=== PATIENT | female | born 1975 | race Caucasian/White ===

== ENCOUNTER 2020-11-26 18:54 | Emergency (ER) | payer OTHER, SELFPAY ==
[2020-11-26 20:05] VITALS: BP 141/71; PULSE 95; RESP 20; TEMP 36.6; O2SAT 95
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
[2020-11-26 21:28] LABS: Basophils Absolute Auto 0.03 K/mm3 (0.00-0.10); Basophils Percent Auto 0.3 % (0.0-1.0); Eosinophils Absolute Auto 0.04 K/mm3 (0.02-0.50); Eosinophils Percent Auto 0.4 % (1.0-6.0); Hematocrit 39.6 % (35.0-49.0); Hemoglobin 13.3 g/dL (12.0-15.0); Immature Granulocyte Absolute 0.03 K/mm3 (0.00-0.00); Immature Granulocyte Percent A 0.3 % (0.0-0.0); Lymphocytes Absolute Auto 2.96 K/mm3 (1.10-4.50); Lymphocytes Percent Auto 26.6 % (18.0-42.0); Mean Corpuscular HGB Conc 33.6 g/dL (32.0-36.0); Mean Corpuscular Hemoglobin 29.9 pg (27.0-31.0); Mean Platelet Volume 10.7 fl (9.2-11.8); Monocytes Absolute Auto 0.63 K/mm3 (0.10-0.90); Monocytes Percent Auto 5.7 % (2.0-11.0); Neutrophils Absolute Auto 7.4 K/mm3 (1.7-7.2); Neutrophils Percent Auto 66.7 % (50.0-70.0); Platelet Count Result 371 K/mm3 (150-420); Red Blood Count 4.45 M/mm3 (4.20-5.40); Red Cell Distribution Width 12.6 % (11.6-14.4); White Blood Count 11.1 K/mm3 (4.8-10.8)
[2020-11-26 21:41] LABS: Add Urine Microscopic? YES; Appearance Urine Clear (Clear); Bilirubin Urine Negative (Negative); Blood Urine 1+ (Negative); Color Urine Yellow (Yellow); Glucose Urine UA Negative (Negative); Ketones Urine 1+ (Negative); Leukocyte Esterase Ur 1+ LEU/UL (Negative); Nitrate Urine Positive (Negative); Protein Urine Trace (Negative); Specific Grav Ur >= 1.030 (1.010-1.020); Urobilinogen Urine 0.2 mg/dL (0.2-1.0)
--- NOTE | 2020-11-26 21:44 | PC.NURSE ---
2039 pt decined iv access at this time, i dont want anything put into my body until i have drug results and lab results . erp notified.
[2020-11-26 21:50] LABS: Squamous Epithelial Cell Urine Many /hpf (Few); WBC Urine 31-50 /hpf (0-3)
[2020-11-26 21:51] LABS: Amphetamine Screen Urine Positive (Negative); Bacteria Urine 4+ /hpf; Barbiturate Screen Urine Negative (Negative); Benzodiazepines Screen Urine Positive (Negative); Cannabinoid Screen Urine Positive (Negative); Cocaine Screen Urine Negative (Negative); Methadone Screen Urine Negative (Negative); Mucus Urine Moderate /lpf; Opiate Screen Urine Negative (Negative); Phencyclidine Screen Urine Negative (Negative)
[2020-11-26 21:54] LABS: Alanine Aminotransferase 17 U/L (14-59); Albumin Level 3.8 g/dL (3.4-5.0); Alkaline Phosphatase 74 U/L (46-116); Anion Gap 13 mmol/L (8-16); Aspartate Amino Transferase 17 U/L (15-37); Bilirubin,Total 0.8 mg/dL (0.00-1.00); Blood Urea Nitrogen 10 mg/dL (7-18); Calcium 8.6 mg/dL (8.5-10.1); Carbon Dioxide 19 mmol/L (21-32); Chloride 104 mmol/L (98-108); Estimated CRCL calculation 89 ml/min; Estimated Glomerular Filt Rate > 60; Glucose 96 mg/dL (70-99); Lipase 252 U/L (73-393); Osmolality Calculated 281 mOsm/kg (285-295); Potassium 4.7 mmol/L (3.5-5.1); Sodium 136 mmol/L (136-145); Total Protein 7.3 g/dL (6.4-8.2)
[2020-11-26 21:58] LABS: SARS-CoV-2 Ag Negative (Negative)
[2020-11-26 21:59] LABS: Influenza Control Valid (Valid)
[2020-11-26 22:01] LABS: Lactic Acid Reflex 0.9 mmol/L (0.4-2.0)
[2020-11-26] MEDS: CIPROFLOXACIN 500 MG TAB PO (22:18)
[2020-11-26 22:27] VITALS: BP 147/71; PULSE 87; RESP 20; TEMP 36.8; O2SAT 97
[2020-11-26 22:54] LABS: SARS-CoV-2 RNA PCR Negative (Negative)
== END 2020-11-26 22:29 | disposition home or self-care (01) ==
PROVIDERS: Emergency Provider Emergency Medicine
DX: N12 Tubulo-interstitial nephritis, not specified as acute or chronic (principal)
CPT/HCPCS: 36415; 80053; 80307; 81001; 83605; 83690; 85025; 87040; 87077; 87086; 87088; 87186; 87426; 87804; 99283; A9270; C9803; U0003; U0005

== ENCOUNTER 2021-09-22 17:12 | Emergency (ER) | payer OTHER, SELFPAY ==
[2021-09-22 17:16] VITALS: BP 135/75; PULSE 97; RESP 16; TEMP 36.6; O2SAT 100
--- NOTE | 2021-09-22 17:24 | ED.FEMALEGU ---
HPI - Female Genitourinary General Chief complaint: Urogenital-Female Stated complaint: back pain, swelling feet/legs Source: patient and RN notes reviewed Mode of arrival: ambulatory Limitations: no limitations History of Present Illness MD elicited complaint: dysuria and flank pain Pertinent past history: recurrent UTIs Onset (ago): day(s) (1) Severity: moderate Quality of pain: dull, burning and aching Consistency: constant and progressively worsening Vaginal discharge: none Vaginal bleeding: none Urinary symptoms: Dysuria and Difficulty Urinating Exacerbating factors: urination Relieving factors: none Treatment prior to arrival: none Patient : No Related Data Allergies Allergy/AdvReac Type Severity Reaction Status Date / Time erythromycin base Allergy Unknown Unknown Verified 09/22/21 17:27 Penicillins AdvReac Mild Unknown Verified 09/22/21 17:27 SALICYLATES Allergy Mild Unknown Uncoded 09/22/21 17:27 NKFA Allergy Unknown Unknown Uncoded 09/22/21 17:27 Review of Systems Review of Systems: All systems reviewed & are unremarkable except as noted in HPI and below Constitutional: Constitutional: Reports chills Cardiovascular: Cardiovascular: Reports pedal edema (for two weeks) [facility] Past Medical History Medical History Narcotic abuse Social History Social History Smoking status: Current every day smoker Alcohol intake: never Substance use: former Substance use type: former substance user, marijuana and opiates Last use: fentanyl 2 weeks ago Exam Const: General: healthy appearing, no acute distress and alert Nutritional Appearance: well nourished Orientation/consciousness: patient oriented x3 Other: Female nurse in room during examination. HENMT: Head: normal to inspection Ears: external ears normal Eyes: General: appearance normal, both eyes and all related structures Conjunctivae: conjunctivae normal Pupils: Equal, round and reactive pupils present EOM: EOMs intact bilaterally Neck: Neck: normal visual inspection Resp: Effort & Inspection: normal respiratory effort Auscultation: clear to auscultation bilaterally Cardio: Rate: regular rate Rhythm: regular rhythm GI: GI Palp: Yes Soft to palpation and No Tenderness to palpation present (GI) Auscultation: normal bowel sounds : General: Yes CVA tenderness bilateral Back/Spine/Pelvis: Cervical Spine: cervical ROM normal Thoracic/Lumbar Spine: thoraco-lumbar ROM normal Skin: General skin exam: normal color Rashes: no rashes Neuro: General: patient oriented x3, moves all extremities, no focal motor deficits and CN's II-XI intact bilaterally Speech: normal speech Gait exam (Neuro): Normal gait present Extrem: General: edema bilateral (trace around ankles) Psych: Mental Status: mental status grossly normal Affect: normal affect Attitude: cooperative Thought content: Yes Normal thought content present Course Vital Signs Vital signs: Vital Signs Temperature 36.6 C 09/22/21 17:16 Pulse Rate 97 09/22/21 17:16 Respiratory Rate 16 09/22/21 17:16 Blood Pressure 135/75 09/22/21 17:16 Pulse Oximetry 100 09/22/21 17:16 Temperature 36.6 C 09/22/21 18:30 Pulse Rate 88 09/22/21 18:30 Respiratory Rate 16 09/22/21 18:30 Blood Pressure 130/74 09/22/21 18:30 Pulse Oximetry 100 09/22/21 18:30 MDM - Female Genitourinary Lab Data Result diagrams: 09/22/21 17:50 09/22/21 17:50 Labs: Lab Results 09/22/21 09/22/21 09/22/21 Range/Units 17:50 17:50 17:50 WBC 3.6 L (4.8-10.8) K/mm3 RBC 4.57 (4.20-5.40) M/mm3 Hgb 13.3 (12.0-15.0) g/dL Hct 42.1 (35.0-49.0) % MCV 92.1 (78.0-102.0) fL MCH 29.1 (27.0-31.0) pg MCHC 31.6 L (32.0-36.0) g/dL RDW 12.6 (11.6-14.4) % Plt Count 243 (150-420) K/mm3 MPV 11.1 (9.2-11.8) fl
[2021-09-22 17:57] LABS: Add Urine Microscopic? YES; Bilirubin Urine Negative (Negative); Blood Urine 2+ (Negative); Color Urine Yellow (Yellow); Glucose Urine UA Negative (Negative); Hematocrit 42.1 % (35.0-49.0); Hemoglobin 13.3 g/dL (12.0-15.0); Ketones Urine Negative (Negative); Leukocyte Esterase Ur 1+ LEU/UL (Negative); Mean Corpuscular HGB Conc 31.6 g/dL (32.0-36.0); Mean Corpuscular Hemoglobin 29.1 pg (27.0-31.0); Mean Corpuscular Volume 92.1 fL (78.0-102.0); Mean Platelet Volume 11.1 fl (9.2-11.8); Nitrate Urine Positive (Negative); Platelet Count Result 243 K/mm3 (150-420); Protein Urine Negative (Negative); Red Blood Count 4.57 M/mm3 (4.20-5.40); Red Cell Distribution Width 12.6 % (11.6-14.4); Specific Grav Ur >= 1.030 (1.010-1.020); Urobilinogen Urine 0.2 mg/dL (0.2-1.0); White Blood Count 3.6 K/mm3 (4.8-10.8)
[2021-09-22 18:02] LABS: Appearance Urine Slightly Cloudy (Clear)
[2021-09-22 18:03] LABS: Bacteria Urine 4+ /hpf; Squamous Epithelial Cell Urine Few /hpf (Few)
[2021-09-22 18:19] LABS: Alanine Aminotransferase 42 U/L (14-59); Albumin Level 3.8 g/dL (3.4-5.0); Alkaline Phosphatase 99 U/L (46-116); Anion Gap 8 mmol/L (8-16); Aspartate Amino Transferase 22 U/L (15-37); Bilirubin,Total 0.1 mg/dL (0.00-1.00); Blood Urea Nitrogen 10 mg/dL (7-18); Calcium 8.5 mg/dL (8.5-10.1); Carbon Dioxide 27 mmol/L (21-32); Chloride 100 mmol/L (98-108); Estimated CRCL calculation 82 ml/min; Estimated Glomerular Filt Rate > 60; Glucose 84 mg/dL (70-99); NT Pro B Type Natriuretic Pept 12 pg/mL (0-125); Osmolality Calculated 278 mOsm/kg (285-295); Potassium 3.9 mmol/L (3.5-5.1); Sodium 135 mmol/L (136-145); Total Protein 7.2 g/dL (6.4-8.2)
[2021-09-22 18:20] LABS: CRP < 0.2 mg/dL (0.0-0.9)
[2021-09-22 18:21] LABS: Band Neutrophils Percent 0 % (0-6); Eosinophils Absolute Manual 0.07 K/mm3 (0.02-0.5); Eosinophils Percent Manual 2 % (1-6); Lymphocytes Absolute Manual 1.51 K/mm3 (1.1-4.5); Lymphocytes Percent Manual 42 % (18-44); Monocytes Absolute Manual 0.36 K/mm3 (0.1-0.90); Monocytes Percent Manual 10 % (3-9); Neutrophils Absolute Manual 1.65 K/mm3 (1.7-7.2); Neutrophils Percent Manual 46 % (46-73); Platelet Estimate Adequate (Adequate); Total Cells Counted 100
[2021-09-22 18:30] VITALS: BP 130/74; PULSE 88; RESP 16; TEMP 36.6; O2SAT 100
== END 2021-09-22 18:40 | disposition home or self-care (01) ==
PROVIDERS: Emergency Provider Emergency Medicine
DX: N30.01 Acute cystitis with hematuria (principal)
CPT/HCPCS: 36415; 80053; 81001; 83880; 85025; 86140; 87077; 87086; 87088; 87186; 99283; A9270

== ENCOUNTER 2023-03-20 07:55 | Emergency (ER) | payer OTHER, SELFPAY ==
--- NOTE | ~2023-03-20 | US_ITS ---
Limited Abdominal Sonogram: Real-time sonographic imaging of the right upper quadrant was performed. Clinical History: Right upper quadrant pain Findings: The liver appears normal with no evidence of mass lesion or bile duct dilatation. Main por eileen vein demonstrates normal direction of flow. The gallbladder is partially distended, and appears n ormal with no evidence of gallstone or wall thickening. The common bile duct measures 8 mm. The visu alized pancreas, aorta, and IVC are unremarkable. Impression: No significant abnormality seen. Reviewed, dictated and finalized at location [facility]. [employer] Impression: No significant abnormality seen.
--- NOTE | ~2023-03-20 | CT_ITS ---
EXAMINATION: CT abdomen pelvis wo con DATE: 03/20/2023 09:35 INDICATION: Right lower quadrant abdominal pain. Nausea and vomiting. TECHNIQUE: Computed tomography (CT) of the abdomen and pelvis was performed without intravenous contr ast. Automated exposure control and iterative reconstruction technique were employed. Exam dose: 842 .64 mGy-cm total exam DLP. COMPARISON: 03/20/2023 Limited abdominal ultrasound examination; no significant abnormality was repor kem 02/03/2019 CT abdomen pelvis FINDINGS: Minimal bilateral basilar lower lobe atelectasis. Normal heart size. No pericardial or pleural effusion. The liver, gallbladder, bile ducts, pancreas, pancreatic duct, and adrenal glands are unremarkable. There is mild right perinephric stranding and mild fullness of the right renal pelvis compared to 02/03/2019. The right ureter is difficult to track but there is an approximately 2 mm calcification in th e region of the distal right ureter near the urinary bladder which might represent a small distal rig ht ureteral calculus. Repeat CT examination with IV contrast material may be helpful for further conf irmation or exclusion of distal right ureteral calculus. No other urinary tract calculus is evident. No left hydroureteronephrosis. Bilateral tubal ligation. The uterus and adnexal areas otherwise appear unremarkable. Normal caliber of the abdominal aorta. No intraperitoneal or retroperitoneal or pelvic mass or adenop athy or ascites is noted. No evidence of appendicitis. There is a prominent amount of fecal material in the colon. No bowel obs truction, bowel wall thickening, pneumatosis or intraperitoneal free air is detected. Included skeletal structures are unremarkable. IMPRESSION: Cannot exclude approximately 2 mm distal right ureteral calculus; consider repeat CT exa mination with IV contrast material for more definitive confirmation or exclusion of such. Reviewed, dictated and finalized at [facility]. Reviewed, dictated and finalized at location [facility]. [employer] PERSON IMPRESSION: Cannot exclude approximately 2 mm distal right ureteral calculus; consider repeat CT examination with IV contrast material for more definitive co nfirmation or exclusion of such.
[2023-03-20 07:59] VITALS: BP 115/67; PULSE 92; RESP 20; TEMP 37.1; O2SAT 98
--- NOTE | 2023-03-20 08:03 | ED.ABDPAIN ---
HPI - Abdominal Pain General Chief Complaint: Abdominal Pain Stated Complaint: abdominal pain Time Seen by Provider: 03/20/23 08:01 Source: patient Mode of arrival: ambulatory Limitations: no limitations History of Present Illness HPI narrative: 47-year-old female , smoker with a history of polysubstance abuse, gallbladder disease presents to the ER with a multiple day history of -- right upper quadrant abdominal pain -- nausea with vomiting. No fever or chills. MD elicited complaint: abdominal pain Pertinent past history: other ( gallbladder disease) Onset (ago): day(s) Pain Consistency: constant Location: RUQ Severity: severe Quality: cramping Radiation: none Migration to: no migration Exacerbating factors: nothing Relieving factors: nothing Associated symptoms: denies other symptoms Related Data Allergies Allergy/AdvReac Type Severity Reaction Status Date / Time erythromycin base Allergy Unknown Unknown Verified 01/02/22 10:53 Penicillins AdvReac Mild Unknown Verified 01/02/22 10:53 SALICYLATES Allergy Mild Unknown Uncoded 01/02/22 10:53 NKFA Allergy Unknown Unknown Uncoded 01/02/22 10:53 Review of Systems Review of Systems: All systems reviewed & are unremarkable except as noted in HPI and below Constitutional: Constitutional: Reports as per HPI and Reports no additional constitutional complaints Eyes: Eyes: Reports as per HPI and Reports no additional eye complaints ENT: Reports system reviewed and no additional complaints, except as documented and Reports as per HPI Cardiovascular: Cardiovascular: Reports as per HPI and Reports no additional cardiovascular complaints Respiratory: Respiratory: Reports as per HPI and Reports no additional respiratory complaints Gastrointestinal: Gastrointestinal: Reports abdominal pain, Reports nausea and Reports vomiting Genitourinary: Genitourinary: Reports no additional female genitourinary complaints Musculoskeletal: Musculoskeletal: Reports no additional musculoskeletal complaints and Reports as per HPI Integumentary/Breasts: Skin/Breast: Reports system reviewed and no additional complaints, except as docu and Reports as per HPI Neurologic: Reports system reviewed and no additional complaints, except as documented and Reports as per HPI Psychiatric: Psychiatric: Reports no additional psychiatric complaints and Reports as per HPI Endocrine: Endocrine: Reports no additional endocrine complaints and Reports as per HPI Hematologic/Lymphatic: Hematologic/Lymphatic: Reports no additional hematologic/lymphatic complaints and Reports as per HPI Allergic/Immunologic: Allergic/Immunologic: Reports no additional allergic/immunologic complaints and Reports as per HPI [facility] Past Medical History Medical History Narcotic abuse Social History Social History Smoking status: Current every day smoker Alcohol intake: never Substance use: former Substance use type: former substance user, marijuana and opiates Last use: fentanyl 2 weeks ago Living arrangements: alone Exam Const: General: healthy appearing and no acute distress Nutritional Appearance: well nourished Orientation/consciousness: patient oriented x3 Limitations: no limitations HENMT: Head: normal to inspection Ears: external ears normal Face/Nose/Sinus: Normal external nose present Face and sinus: normal facial exam Mouth: Yes dry mucous membranes Throat: posterior oropharynx normal Eyes: Conjunctivae: conjunctivae normal Pupils: Equal, round and reactive pupils present EOM: EOMs intact bilaterally Direct Ophthalmoscopy: no photophobia Neck: Neck: normal visual inspection and no lymphadenopathy Chest: Chest palpation & inspection: normal inspection of the chest and abnormal inspection of the chest Resp: Effort & Inspection: normal respiratory effort Auscultation: diminished lung so
[2023-03-20 08:28] LABS: Basophils Absolute Auto 0.04 K/mm3 (0.00-0.10); Basophils Percent Auto 0.5 % (0.0-1.0); Eosinophils Absolute Auto 0.32 K/mm3 (0.02-0.50); Eosinophils Percent Auto 4.1 % (1.0-6.0); Hemoglobin 10.3 g/dL (12.0-15.0); Immature Granulocyte Absolute 0.02 K/mm3 (0.00-0.00); Immature Granulocyte Percent A 0.3 % (0.0-0.0); Lymphocytes Absolute Auto 2.07 K/mm3 (1.10-4.50); Lymphocytes Percent Auto 26.5 % (18.0-42.0); Mean Corpuscular HGB Conc 32.2 g/dL (32.0-36.0); Mean Corpuscular Hemoglobin 28.2 pg (27.0-31.0); Mean Corpuscular Volume 87.7 fL (78.0-102.0); Mean Platelet Volume 10.4 fl (9.2-11.8); Monocytes Absolute Auto 0.65 K/mm3 (0.10-0.90); Monocytes Percent Auto 8.3 % (2.0-11.0); Neutrophils Absolute Auto 4.7 K/mm3 (1.7-7.2); Neutrophils Percent Auto 60.3 % (50.0-70.0); Platelet Count Result 362 K/mm3 (150-420); Red Blood Count 3.65 M/mm3 (4.20-5.40); Red Cell Distribution Width 12.7 % (11.6-14.4); White Blood Count 7.8 K/mm3 (4.8-10.8)
[2023-03-20 08:42] LABS: Prothrombin Time 10.6 Seconds (9.64-11.0)
--- NOTE | 2023-03-20 08:42 | PC.NURSE ---
pt to ultrasound and return to room. assisted to bathroom via wheelchair.
[2023-03-20 08:45] LABS: Partial Thromboplastin Time 28.7 SEC (23.90-30.70)
[2023-03-20 08:50] LABS: Appearance Urine Cloudy (Clear); Bilirubin Urine Negative (Negative); Blood Urine 1+ (Negative); Color Urine Yellow (Yellow); Glucose Urine UA Negative (Negative); Ketones Urine Negative (Negative); Leukocyte Esterase Ur Trace LEU/UL (Negative); Nitrate Urine Positive (Negative); Protein Urine Negative (Negative); Specific Grav Ur >= 1.030 (1.010-1.020); Urobilinogen Urine 0.2 mg/dL (0.2-1.0)
[2023-03-20 08:51] LABS: Alanine Aminotransferase 112 U/L (14-59); Albumin Level 2.9 g/dL (3.4-5.0); Alkaline Phosphatase 160 U/L (46-116); Anion Gap 4 mmol/L (8-16); Aspartate Amino Transferase 53 U/L (15-37); Bilirubin,Total 0.2 mg/dL (0.00-1.00); Blood Urea Nitrogen 12 mg/dL (7-18); Calcium 8.6 mg/dL (8.5-10.1); Carbon Dioxide 32 mmol/L (21-32); Chloride 105 mmol/L (98-108); Estimated CRCL calculation 78 ml/min; Estimated Glomerular Filt Rate > 60; Glucose 98 mg/dL (70-99); Lipase 17 U/L (16-77); Osmolality Calculated 291 mOsm/kg (285-295); Sodium 141 mmol/L (136-145); Total Protein 6.6 g/dL (6.4-8.2); Troponin I 4.1 ng/L (0.00-60.4)
[2023-03-20 08:53] LABS: Pregnancy On Board Control Y; Urine Pregnancy Test Negative
[2023-03-20 08:55] LABS: Add Urine Microscopic? YES
[2023-03-20 08:56] LABS: Squamous Epithelial Cell Urine Moderate /hpf (Few)
[2023-03-20 08:57] LABS: Bacteria Urine 4+ /hpf
--- NOTE | 2023-03-20 09:00 | PC.NURSE ---
attempted to get iv access with 2 validation intern, x3. unsuccessful. pt refuses another attempt. dr gregorio notified.
[2023-03-20 10:12] VITALS: BP 107/56; PULSE 84; RESP 20; TEMP 37.2; O2SAT 97
[2023-03-20] MEDS: IBUPROFEN 400 MG TABLET 800 MG PO (10:45)
--- NOTE | 2023-03-23 12:12 | PC.NURSE ---
final urine culture reviewed. bactrim is appropriate treatment for ut. no action needed
== END 2023-03-20 10:55 | disposition left against medical advice (07) ==
PROVIDERS: Emergency Provider Internal Medicine Critical Care Medicine
DX: N20.0 Calculus of kidney (principal); F17.200 Nicotine dependence, unspecified, uncomplicated
CPT/HCPCS: 36415; 74176; 76705; 80053; 81001; 81025; 83605; 83690; 84484; 85025; 85610; 85730; 87077; 87086; 87088; 87186; 99284; A9270